=== PATIENT | female | born 1970 | race Hispanic/Latino ===

== ENCOUNTER 2020-09-14 17:31 | Emergency (ER) | payer OTHER ==
[~2020-09-14] VITALS: Ht 152.4 cm; Wt 67.1 kg
[~2020-09-14 17:31] MED LIST: EXEN10PE3 SQ; IBUP-2070 PO; METF-444 PO; SULF1TAB42 PO; TYL3 GT
[2020-09-14 17:33] VITALS: BP 130/75
[2020-09-14] MEDS ORDERED: ONDANSETRON 4MG INJ IVP ONE (18:00)
[2020-09-14] MEDS ORDERED: MORPHINE 4 MG SYG IV ONE (18:00)
[2020-09-14 18:13] LABS: APPEARANCE,URINE Clear (CLEAR); BILIRUBIN,URINE Negative (NEGATIVE); COLOR,URINE Yellow (YELLOW); GLUCOSE, URINE (UA) >=1000 mg/dL (NEGATIVE); KETONES,URINE Trace mg/dL (NEGATIVE); LEUKOCYTE ESTERASE ,URINE Negative (NEGATIVE); NITRATE,URINE Negative (NEGATIVE); OCCULT BLOOD,URINE Negative (NEGATIVE); PROTEIN,URINE Negative (NEGATIVE); UROBILINOGEN,URINE 0.2 mg/dL (0.2-1.0)
[2020-09-14 18:14] LABS: HCG,QUAL RESULT NEGATIVE (NEGATIVE)
[2020-09-14 18:18] LABS: BACTERIA,URINE Rare /HPF (None Seen); RBC,URINE 0-1 /HPF (0-1); SQUAMOUS EPITHELIAL CELL,UR Few /HPF (0-2); YEAST,URINE BUDDING Few /HPF (None Seen)
[2020-09-14 18:30] LABS: BASOPHILS % (AUTO) 0.6 % (0.0-5.0); HEMATOCRIT 44.9 % (36-48); MEAN CORPUSCULAR HEMOGLOBIN 29.1 pg (27.0-33.0); MEAN CORPUSCULAR HGB CONC 33.4 g/dL (32.0-36.0); MONOCYTES % (AUTO) 7.5 % (3.0-13.0); NEUTROPHILS % (AUTO) 52.8 % (40.0-77.0); PLATELET COUNT (AUTO) 333 K/uL (130-400); RED BLOOD CELL COUNT(AUTO) 5.16 MIL/uL (4.00-5.50); WHITE BLOOD COUNT (AUTO) 7.8 K/uL (4.8-10.8)
[2020-09-14 18:47] LABS: ALBUMIN 3.7 g/dL (3.5-5.0); BILIRUBIN,TOTAL 0.3 mg/dL (0.2-1.0); POTASSIUM 3.9 mmol/L (3.5-5.1); TOTAL PROTEIN, SERUM 7.9 g/dL (6.0-8.3)
[2020-09-14] MEDS ORDERED: INSULIN HUMULIN R 100 UNIT/ML 3ML SQ ONE (19:00)
[2020-09-14] MEDS ORDERED: 0.9%NACL 1000ML 1,000 ML IV ONE (19:00)
[2020-09-14] MEDS ORDERED: ZOSYN 3.375GM +NS 50ML IV ONE (19:30)
[2020-09-14] MEDS ORDERED: CEPH500B PO (19:43)
[2020-09-14] MEDS ORDERED: LACT10PA5 PO (19:43)
[2020-09-14] MEDS ORDERED: DICY20TA2 PO (19:43)
[2020-09-14 20:16] VITALS: BP 143/71
== END 2020-09-14 20:39 | disposition home or self-care (01) ==
LOC: EDH 17:31
DX: N39.0 Urinary tract infection, site not specified (principal); K59.00 Constipation, unspecified; R10.30 Lower abdominal pain, unspecified; R11.2 Nausea with vomiting, unspecified; I10 Essential (primary) hypertension; Z79.84 Long term (current) use of oral hypoglycemic drugs
CPT/HCPCS: 36415; 74176; 80053; 81001; 81025; 82150; 83690; 84484; 85025; 87088; 93005; 96365; 96372; 96375; 99285; J1815; J2270; J2405; J2543

== ENCOUNTER 2022-08-27 09:20 | Inpatient (IN) | payer OTHER ==
[~2022-08-27] VITALS: Ht 152.4 cm; Wt 70.5 kg
[~2022-08-27 09:20] MED LIST changes: +CEPH500B PO; +DICY20TA2 PO; +LACT10PA5 PO
[2022-08-27] MEDS ORDERED: HYDROCODONE/ACETAMINOPHEN 10/325 MG TAB PO ONE (10:00)
[2022-08-27 10:55] LABS: APPEARANCE,URINE CLEAR (CLEAR); BILIRUBIN,URINE NEGATIVE (NEGATIVE); COLOR,URINE COLORLESS (YELLOW); GLUCOSE, URINE (UA) >=1000 mg/dL (NEGATIVE); KETONES,URINE NEGATIVE (NEGATIVE); LEUKOCYTE ESTERASE ,URINE NEGATIVE Leu/uL (NEGATIVE); NITRATE,URINE NEGATIVE (NEGATIVE); PROTEIN,URINE 10 mg/dL (NEGATIVE); UROBILINOGEN,URINE 0.2 mg/dL (0.2-1.0)
[2022-08-27 10:57] LABS: SQUAMOUS EPITHELIAL CELL,UR RARE /HPF (0-2)
[2022-08-27 11:26] LABS: BASOPHILS % (AUTO) 0.7 % (0.0-5.0); EOSINOPHILS % (AUTO) 3.8 % (0.0-8.0); HEMATOCRIT 41.4 % (36-48); LYMPHOCYTES % (AUTO) 19.5 % (21.0-51.0); MEAN CORPUSCULAR HEMOGLOBIN 29.1 pg (27.0-33.0); MEAN CORPUSCULAR HGB CONC 33.8 g/dL (32.0-36.0); MEAN CORPUSCULAR VOLUME 86.1 fL (79-99); MONOCYTES % (AUTO) 6.1 % (3.0-13.0); NEUTROPHILS % (AUTO) 69.6 % (40.0-77.0); PLATELET COUNT (AUTO) 224 K/uL (130-400); RED BLOOD CELL COUNT(AUTO) 4.81 MIL/uL (4.00-5.50); WHITE BLOOD COUNT (AUTO) 9.5 K/uL (4.8-10.8)
[2022-08-27 11:42] LABS: ALBUMIN 3.4 g/dL (3.5-5.0); CREATININE 0.9 mg/dL (0.5-1.5); CRP QUANTITATIVE 7.5 mg/L (0.00-9.0); TOTAL PROTEIN, SERUM 7.3 g/dL (6.0-8.3)
[2022-08-27] MEDS ORDERED: INSULIN HUMULIN R 100 UNIT/ML 3ML IV ONE (12:30)
[2022-08-27] MEDS ORDERED: 0.9%NACL 1000ML 1,000 ML IV ONE (12:30)
[2022-08-27] MEDS ORDERED: MORPHINE 4 MG SYG IVP ONE (13:00)
[2022-08-27] MEDS ORDERED: KETOROLAC 15MG/ML VIAL (15MG/ML) IV ONE ×2 (13:00→23:00)
[2022-08-27] MEDS ORDERED: ONDANSETRON 4MG INJ IVP ONE (13:00)
[2022-08-27] MEDS ORDERED: ONDANSETRON 4MG INJ IVP PRN (14:30)
[2022-08-27] MEDS ORDERED: CEFTRIAXONE 1G VIAL IVPB ONE (14:30)
[2022-08-27] MEDS: INSULIN HUMULIN R 100 UNIT/ML 3ML SQ SCH ×2 (16:40→20:24)
[2022-08-27 16:50] VITALS: BP 161/90
[2022-08-27 20:00] VITALS: BP 132/67
[2022-08-27] MEDS: FAMOTIDINE 20MG TAB PO SCH (20:01)
[2022-08-27] MEDS: ACETAMINOPHEN 325 MG TAB PO PRN (20:02)
[2022-08-27 23:49] VITALS: BP 134/76
[2022-08-28 04:00] VITALS: BP 139/74
[2022-08-28 05:49] LABS: BASOPHILS % (AUTO) 0.7 % (0.0-5.0); EOSINOPHILS % (AUTO) 6.8 % (0.0-8.0); LYMPHOCYTES % (AUTO) 18.6 % (21.0-51.0); MEAN CORPUSCULAR HEMOGLOBIN 28.9 pg (27.0-33.0); MEAN CORPUSCULAR VOLUME 87.5 fL (79-99); MONOCYTES % (AUTO) 6.7 % (3.0-13.0); NEUTROPHILS % (AUTO) 66.8 % (40.0-77.0); PLATELET COUNT (AUTO) 227 K/uL (130-400); RED BLOOD CELL COUNT(AUTO) 4.57 MIL/uL (4.00-5.50); RED CELL DISTRIBUTION WIDTH 11.9 % (11.0-15.5); WHITE BLOOD COUNT (AUTO) 8.4 K/uL (4.8-10.8)
[2022-08-28 06:07] LABS: ALBUMIN 2.8 g/dL (3.5-5.0); CREATININE 0.9 mg/dL (0.5-1.5); TOTAL PROTEIN, SERUM 6.6 g/dL (6.0-8.3)
[2022-08-28] MEDS: INSULIN HUMULIN R 100 UNIT/ML 3ML SQ SCH ×4 (06:18→21:29)
[2022-08-28 08:00] VITALS: BP 144/80
[2022-08-28] MEDS: FAMOTIDINE 20MG TAB PO SCH ×2 (08:55→21:24)
[2022-08-28] MEDS: ENOXAPARIN SODIUM 40 MG/0.4 ML SYRINGE SQ SCH (08:56)
[2022-08-28 12:00] VITALS: BP 122/89
[2022-08-28] MEDS ORDERED: INSULIN GLARGINE 100 UNITS/ML 10 ML VIAL SQ ONE (15:30)
[2022-08-28 16:00] VITALS: BP 162/84
[2022-08-28] MEDS ORDERED: HONEY 1 APPL/ML TUBE TP SCH (16:30)
[2022-08-28] MEDS ORDERED: INSULIN HUMULIN R 100 UNIT/ML 3ML SQ SCH (17:00)
[2022-08-28 19:39] VITALS: BP 158/84
[2022-08-28 23:37] VITALS: BP 126/76
[2022-08-29 03:37] VITALS: BP 129/72
[2022-08-29] MEDS: ACETAMINOPHEN 325 MG TAB PO PRN (03:54)
[2022-08-29 04:30] LABS: BASOPHILS % (AUTO) 0.7 % (0.0-5.0); EOSINOPHILS % (AUTO) 6.7 % (0.0-8.0); HEMATOCRIT 38.3 % (36-48); LYMPHOCYTES % (AUTO) 35.8 % (21.0-51.0); MEAN CORPUSCULAR HEMOGLOBIN 28.8 pg (27.0-33.0); MEAN CORPUSCULAR HGB CONC 33.4 g/dL (32.0-36.0); MEAN CORPUSCULAR VOLUME 86.3 fL (79-99); MONOCYTES % (AUTO) 9.9 % (3.0-13.0); NEUTROPHILS % (AUTO) 46.5 % (40.0-77.0); PLATELET COUNT (AUTO) 249 K/uL (130-400); RED BLOOD CELL COUNT(AUTO) 4.44 MIL/uL (4.00-5.50); WHITE BLOOD COUNT (AUTO) 6.7 K/uL (4.8-10.8)
[2022-08-29 04:47] LABS: ALBUMIN 2.7 g/dL (3.5-5.0); CREATININE 0.7 mg/dL (0.5-1.5); POTASSIUM 3.9 mmol/L (3.5-5.1); TOTAL PROTEIN, SERUM 6.4 g/dL (6.0-8.3)
[2022-08-29] MEDS: INSULIN HUMULIN R 100 UNIT/ML 3ML SQ SCH (06:00)
[2022-08-29] MEDS ORDERED: INSULIN HUMULIN R 100 UNIT/ML 3ML SQ SCH (07:30)
[2022-08-29] MEDS ORDERED: INSU10VI3 SQ (07:46)
[2022-08-29] MEDS ORDERED: GABA-529 PO (07:46)
[2022-08-29 08:00] VITALS: BP 133/71
[2022-08-29] MEDS ORDERED: INSULIN GLARGINE 100 UNITS/ML 10 ML VIAL SQ SCH (09:00)
[2022-08-29] MEDS: FAMOTIDINE 20MG TAB PO SCH (09:48)
[2022-08-29] MEDS: ENOXAPARIN SODIUM 40 MG/0.4 ML SYRINGE SQ SCH (09:48)
== END 2022-08-29 10:45 | disposition home or self-care (01) | DRG 637 ==
LOC: EDH 09:20 → EDHIP 14:26 → 3CH 17:11
PROVIDERS: ADMIT Hospitalist; ATTEND Hospitalist
DX: E11.00 Type 2 diabetes mellitus with hyperosmolarity without nonketotic hyperglycemic-hyperosmolar coma (NKHHC) (principal); E43 Unspecified severe protein-calorie malnutrition; E11.40 Type 2 diabetes mellitus with diabetic neuropathy, unspecified; H54.8 Legal blindness, as defined in USA; R32 Unspecified urinary incontinence; L97.519 Non-pressure chronic ulcer of other part of right foot with unspecified severity; E11.621 Type 2 diabetes mellitus with foot ulcer; G89.29 Other chronic pain; I10 Essential (primary) hypertension; M48.061 Spinal stenosis, lumbar region without neurogenic claudication; Z90.710 Acquired absence of both cervix and uterus; Z79.4 Long term (current) use of insulin; Z68.30 Body mass index [BMI] 30.0-30.9, adult
CPT/HCPCS: 36415; 72131; 73630; 80053; 81001; 82948; 83036; 83605; 83690; 85025; 86140; G0378; J0696; J1650; J1815; J1885; J2270; J2405; J7030

== ENCOUNTER 2024-06-10 11:20 | Emergency (ER) | payer BC, MEDICAID ==
[~2024-06-10] VITALS: Ht 152.4 cm; Wt 63.5 kg
[~2024-06-10 11:20] MED LIST changes: -CEPH500B PO; -DICY20TA2 PO; +DOXY100T2 PO; -EXEN10PE3 SQ; -IBUP-2070 PO; -LACT10PA5 PO; -METF-444 PO; -SULF1TAB42 PO; -TYL3 GT
[2024-06-10 12:38] LABS: BASOPHILS # (AUTO) 0.05 K/uL (0.00-0.20); BASOPHILS % (AUTO) 0.6 % (0.0-5.0); EOSINOPHILS # (AUTO) 0.39 K/uL (0.00-0.70); HEMATOCRIT 37.7 % (36-48); IMMATURE GRANULOCYTE ABSOLUTE 0.03 K/uL (0-1); LYMPHOCYTES # (AUTO) 1.7 K/uL (1.0-4.8); LYMPHOCYTES % (AUTO) 21.7 % (21.0-51.0); MEAN CORPUSCULAR HEMOGLOBIN 28.6 pg (27.0-33.0); MEAN CORPUSCULAR HGB CONC 32.9 g/dL (32.0-36.0); MEAN CORPUSCULAR VOLUME 87.1 fL (79-99); MONOCYTES # (AUTO) 0.6 K/uL (0.1-1.0); MONOCYTES % (AUTO) 7.9 % (3.0-13.0); NEUTROPHILS % (AUTO) 64.4 % (40.0-77.0); PLATELET COUNT (AUTO) 360 K/uL (130-400); RED BLOOD CELL COUNT(AUTO) 4.33 MIL/uL (4.00-5.50); RED CELL DISTRIBUTION WIDTH 12.1 % (11.0-15.5); WHITE BLOOD COUNT (AUTO) 7.8 K/uL (4.8-10.8)
[2024-06-10 12:51] LABS: CREATININE 1.1 mg/dL (0.5-1.0); POTASSIUM 4.2 mmol/L (3.5-5.1)
--- NOTE | 2024-06-10 12:53 | HMCIMG ---
ULTRASOUND VENOUS DOPPLER LEFT LOWER EXTREMITY INDICATION: Pain and swelling. TECHNIQUE: Routine grayscale and color Doppler ultrasound of the left lower extremity veins performed. COMPARISON: None. FINDINGS: The demonstrated veins of the left lower extremity including the common femoral vein, femoral vein, and popliteal vein are associated with normal compressibility, augmentation, and flow. Normal respiratory variation was identified. No evidence for echogenic intraluminal thrombus. IMPRESSION: No evidence for deep venous thrombosis.
--- NOTE | 2024-06-10 13:14 | NUR ---
DAUGHTER, ANDREI BALDWIN [phone].
--- NOTE | 2024-06-10 13:47 | HMCIMG ---
LEFT FEMUR RADIOGRAPHS - 2 VIEWS INDICATION: Pain COMPARISON: None FINDINGS: AP and lateral views. No fracture or dislocation identified. Extensive calcific plaque along the inflow, outflow, and runoff arterial manzano.. IMPRESSION: No evidence for fracture or dislocation.
--- NOTE | 2024-06-10 13:48 | HMCIMG ---
LEFT TIBIA AND FIBULA RADIOGRAPHS - 2 VIEWS INDICATION: Pain COMPARISON: None. FINDINGS: AP and lateral views. No evidence for acute fracture or dislocation. Extensive calcific plaque along the outflow and runoff arterial manzano. Subcentimeter plantar calcaneal spur. IMPRESSION: No evidence for fracture or dislocation.
[2024-06-10] MEDS: ketOROlac 30MG VIAL (30MG/ML) IM ONE (14:14)
[2024-06-10] MEDS: TRIAMCINOLONE ACETONIDE 40 MG/ML 1ML VIAL IM ONE (14:14)
[2024-06-10] MEDS: acetaMINOPHEN 500 MG TABLET PO ONE (14:14)
--- NOTE | 2024-06-10 14:30 | ERN ---
ED Note History of Present Illness Stated Complaint: LEFT LEG PAIN,GANGRENE Chief Complaint: Lower Extremity Pain/Injury Time Seen by MD: 11:26 Time Seen by Midlevel: 11:26 Dictation: The Patient is a 53-year-old female with a history of diabetes, right BKA who presents to the emergency department with complaints of left leg pain onset Thursday. Patient reports no trauma. Reports that she has been dealing with some wounds to her left lower leg for months. Denies any fevers. Allergies: Coded Allergies: No Known Drug Allergies (Unverified Allergy, Unknown, 01/24/14) Home Meds Active Scripts Doxycycline Hyclate (Doxycycline Hyclate) 100 Mg Tablet, 100 MG PO BID, #10 TAB 0 Refills Prov:LEVI GUY Irwin DELVALLE 07/16/23 Past Medical History Past Medical History: Diabetes-Type II, High Cholesterol, Hypertension, Other Additional Past Medical Hx: LEGALLY BLIND Surgical History: Appendectomy, Hysterectomy, Other, Surgical History Other: RT BKA Social History: Negative, Lives with family RN Note Reviewed/Agreed w/PFSH: Yes Review of System Dictation Constitutional: Negative for fever,chills, and weight loss Eyes: Negative for injury, pain,redness, and discharge ENT: Negative for injury,pain or swelling Cardiovascular: Negative for chest pain, palpitations, and edema Respiratory: Negative for shortness of breath, cough, and wheezing, Abdomen/GI: Negative for abdominal pain, nausea, vomiting, diarrhea, and con stipation Back: Negative for injury and pain : Negative for injury, bleeding and discharge MS/Extremity: Negative for injury and deformity left leg pain Skin: Negative for rash, and discoloration Neuro: Negative for headache, weakness, numbness, tingling, and seizure Psych: Negative for suicide ideation, homicidal ideation, and hallucinations Initial Vital Sign VS Vital Signs Date Time Temp Pulse Resp B/P (MAP) Pulse Ox O2 Delivery O2 Flow Rate FiO2 06/10/24 11:50 98.2 98 20 139/80 98 Room Air 0 06/10/24 14:00 21 Physical Exam Dictation Vital Signs reviewed General Appearance: Alert, oriented x 3, no acute distress, well developed, nourished. Head and Face: non-traumatic. Eyes: PERRL, pink conjunctivas, eyelid no trauma, anterior chamber with arcus senilis. Ears: Pinnas intact and no signs of trauma or erythema ear canals clear and no discharge TM no erythema Nose: No discharge, no bleeding. Oropharynx: Mouth normal, tongue pink. pharynx clear,no erythema, tonsils no exudates, no abscesses noted, mucous membrane moist Neck: Supple, non-tender, no thyromegaly, no masses, no JVD, no bruits Breast:Deferred Chest:No tenderness, no crepitus, no paradoxical movement, no retractions Lungs:Clear, well-ventilated, symmetric, no rales, no wheezing, no rhonchi, no stridor, good breath sounds bilaterally Heart: Regular rate, regular rhythm, no murmur, no gallops Vascular: no peripheral edema, Abdomen: Soft, positive bowel sounds, nondistended, no guarding, nontender, no rebound, no masses no hepatomegaly, no splenomegaly, no Delacruz's sign, no hernias. Rectal: Deferred Genital: Deferred Neurological: Normal speech, motor function intact, sensory function intact Musculoskeletal: Neck nontender, full range of motion, back nontender, full range of motion, Extremities: nontender, full range of motion Skin: Color pink, dry, no turgor, no rash, no lacerations, no abrasions, no contusions. Wound left lower leg by 1.5 cm in diameter, scab noted Lymphatic: Deferred Results (Laboratory/Radiology) Laboratory/Radiology Laboratory Tests Test 06/10/24 12:22 White Blood Count 7.8 K/uL (4.8-10.8) Red Blood Count 4.33 MIL/uL (4.00-5.50) Hemoglobin 12.4 g/dL (12.0-16.0) Hematocrit 37.7 % (36-48) Mean Corpuscular Volume 87.1 fL (79-99) Mean Corpuscular Hemoglobin 28.6 pg (27.0-33.0) Mean Corpuscular Hemoglobin Concent 32.9 g/dL (32.0-36.0) Red Cell Distribution Width 12.1 % (11.0-15.5) Platelet Count 360 K/uL (130-400) Mean Platelet Volume 11.4 fL (7.5-10.5) H Immature Granulocyte % (Auto) 0.4 % (0-1) Neutrophils (%) (Auto) 64.4 % (40.0-77.0) Lymphocytes (%) (Auto) 21.7 % (21.0-51.0) Monocytes (%) (Auto) 7.9 % (3.0-13.0) Eosinophils (%) (Auto) 5.0 % (0.0-8.0) Basophils (%) (Auto) 0.6 % (0.0-5.0) Neutrophils # (Auto) 5.0 K/uL (1.8-7.7) Lymphocytes # (Auto) 1.7 K/uL (1.0-4.8) Monocytes # (Auto) 0.6 K/uL (0.1-1.0) Eosinophils # (Auto) 0.39 K/uL (0.00-0.70) Basophils # (Auto) 0.05 K/uL (0.00-0.20) Absolute Immature Granulocyte (auto 0.03 K/uL (0-1) Nucleated Red Blood Cells 0.0 % (0.0-0.19) Sodium Level 141 mmol/L (136-145) Potassium Level 4.2 mmol/L (3.5-5.1) Chloride Level 105 mmol/L (101-111) Carbon Dioxide Level 30 mmol/L (21-32) Blood Urea Nitrogen 25 mg/dL (7-18) H Creatinine 1.1 mg/dL (0.5-1.0) H Glomerular Filtration Rate Calc 60 mL/min (>90) Random Glucose 167 mg/dL (70-105) H Total Calcium 9.1 mg/dL (8.5-10.1) Total Creatine Kinase 114 U/L (21-232) # REASON: pain ORDERING PHYSICIAN: HARRY WELLS SHIPS OR BARGES LOADER PROCEDURE: TIBFIB LT - TIBIA/FIBULA 2VWS LT LEFT TIBIA AND FIBULA RADIOGRAPHS - 2 VIEWS INDICATION: Pain COMPARISON: None. FINDINGS: AP and lateral views. No evidence for acute fracture or dislocation. Extensive calcific plaque along the outflow and runoff arterial manzano. Subcentimeter plantar calcaneal spur. IMPRESSION: No evidence for fracture or dislocation. REASON: pain ORDERING PHYSICIAN: HARRY WELLS SHIPS OR BARGES LOADER PROCEDURE: FEM LT 2 - FEMUR 2 VW LEFT LEFT FEMUR RADIOGRAPHS - 2 VIEWS INDICATION: Pain COMPARISON: None FINDINGS: AP and lateral views. No fracture or dislocation identified. Extensive calcific plaque along the inflow, outflow, and runoff arterial manzano.. IMPRESSION: No evidence for fracture or dislocation. REASON: pain, left lower leg ORDERING PHYSICIAN: HARRY WELLS PROCEDURE: VENOUS UNI - US VENOUS DOPPLER UNILATERAL ULTRASOUND VENOUS DOPPLER LEFT LOWER EXTREMITY INDICATION: Pain and swelling. TECHNIQUE: Routine grayscale and color Doppler ultrasound of the left lower extremity veins performed. COMPARISON: None. FINDINGS: The demonstrated veins of the left lower extremity including the common femoral vein, femoral vein, and popliteal vein are associated with normal compressibility, augmentation, and flow. Normal respiratory variation was identified. No evidence for echogenic intraluminal thrombus. IMPRESSION: No evidence for deep venous thrombosis. Labs Reviewed?: Yes ED Course ED Course Orders Procedure Category Date Status Time Cbc With Differential LAB 06/10/24 Complete 12:10 Basic Metabolic Panel LAB 06/10/24 Complete 12:10 Creatine Kinase, Total LAB 06/10/24 Complete 12:10 Us Venous Doppler US 06/10/24 Resulted Unilateral 12:10 Acetaminophen 500mg PHA 06/10/24 Complete Tab (Tylenol 500mg T 12:30 Tibia/Fibula 2vws Lt RAD 06/10/24 Resulted 12:12 Femur 2 Vw Left RAD 06/10/24 Resulted 12:12 Triamcinolone Acet PHA 06/10/24 In Process 40mg/Ml 1ml (Kenalog 14:30 Ketorolac PHA 06/10/24 In Process Tromethamine 30mg/Ml 14:30 Current Medications Medications (Trade) Dose Ordered Sig/Valeriy Route PRN Reason Start Time Stop Time Status Last Admin Dose Admin Acetaminophen (TYLenol 500MG TAB) 1,000 mg ONCE ONCE PO 06/10/24 12:30 06/10/24 12:31 DC 06/10/24 14:14 Ketorolac Tromethamine (toRADol) 30 mg ONCE ONCE IM 06/10/24 14:30 06/10/24 14:31 06/10/24 14:14 Triamcinolone Acetonide (Kenalog 40) 40 mg ONCE ONCE IM 06/10/24 14:30 06/10/24 14:31 06/10/24 14:14 Vital Signs Date Time Temp Pulse Resp B/P (MAP) Pulse Ox O2 Delivery O2 Flow Rate FiO2 06/10/24 14:00 78 18 146/76 98 Room Air* 0 21 06/10/24 11:50 98.2 98 20 139/80 98 Room Air 0 Medical Decision Making MDM The Patient is a 53-year-old female with a history of diabetes, right BKA who presents to the emergency department with complaints of left leg pain onset Thursday. Patient reports no trauma. Reports that she has been dealing with some wounds to her left lower leg for months. Denies any fevers. CBC showed no leukocytosis, no anemia, chemistry showed no electrolyte imbal ance, normal CK level. Ultrasound revealed no evidence of DVT. X-ray showed no acute fractures. Patient with full movements with good. Wound does not appear to be infected, scabbing noted around the wound, no drainage. Appears to be healing well. No erythema or discoloration to lower extremities. Neurovascularly intact Patient in no acute distress, stable vital signs we will be discharged to follow up with. Differential diagnosis: DVT, rhabdomyolysis, sepsis, rashes Need for hospitalization: Patient does not meet criteria for hospitalization. There are no social concerns with this patient. DX & DISP Disposition: Discharge Departure Impression: Primary Impression: Left leg pain Condition: Stable Additional Instructions: Please follow up with the primary doctor in 1-2 days. Please return to ER if symptoms worsen. There was no obvious fractures on the x-ray. There was also no evidence of deep vein thrombosis. FOLLOW-UP WITH PRIMARY CARE PROVIDER IN 1 TO 2 DAYS. TAKE MEDICATIONS DIRECT ED HERE IN THE EMERGENCY ROOM. OKAY TO CONTINUE HOME MEDICATIONS UNLESS OTHERWISE DISCUSSED DURING YOUR VISIT IN THE EMERGENCY ROOM TODAY. RETURN TO YOUR NEAREST EMERGENCY ROOM IF SYMPTOMS WORSEN OR IF THERE IS NO IMPROVEMENT. CALL 911 IF YOU NEED IMMEDIATE ASSISTANCE. TAKE TYLENOL OR MOTRIN [id number] NEEDED AND IF NO CONTRAINDICATIONS ARE PRESENT. INCREASE ORAL HYDRATION. A WOUND CULTURE OR URINE CULTURE WAS ORDERED HERE IN THE EMERGENCY ROOM DEPARTMENT PLEASE FOLLOW-UP WITH PRIMARY CARE PROVIDER AND ADVISE THEM TO GET REPEAT PORTS FROM OUR FACILITY. IF YOU HAD ANY KASHMIR WRAP/SPLINTS THAT WERE APPLIED HERE, PLEASE DO NOT REMOVE THEM UNTIL YOU SEE YOUR PRIMARY CARE OR SPECIALTY. Referrals: SHARIF LERNER MD (PCP) Time of Disposition: 14:30 I have reviewed the case, and I agree with, Diagnosis and Plan HARRY WELLSP Jun 10, 2024 14:30
[2024-06-10 14:53] VITALS: BP 152/79; PULSE 78; RESP 18; TEMP 98.2; O2SAT 98
== END 2024-06-10 14:54 | disposition home or self-care (01) ==
LOC: EDH 11:20
DX: M79.605 Pain in left leg (principal); E11.9 Type 2 diabetes mellitus without complications; E78.00 Pure hypercholesterolemia, unspecified; I10 Essential (primary) hypertension; Z79.899 Other long term (current) drug therapy; Z89.511 Acquired absence of right leg below knee; Z90.49 Acquired absence of other specified parts of digestive tract; Z90.710 Acquired absence of both cervix and uterus
CPT/HCPCS: 99284; 93971; 82550; 80048; 85025; 36415; 73552; 73590; 96372 ×2; J1885; J3301; 99285

== ENCOUNTER → 2025-01-11 | Outpatient (CLI) | payer OTHER, MEDICARE ==
--- NOTE | 2025-01-11 15:55 | HMCIMG ---
DIGITAL BILATERAL SCREENING MAMMOGRAM Technique: The digital mammographic examination of both breasts in craniocaudal and mediolateral oblique views along with CAD was obtained. History: This is a 54 years year-old female 3, para3 Ab0. Patient has no family history of breast cancer. Patient has no complaint Reference:Prior mammogram from 12/01/2013 are available.. Breast composition: Breast composition D: The breasts are extremely dense, which lowers the sensitivity of mammography. Finding: The digital mammographic examination of both breasts in craniocaudal and mediolateral oblique view along with CAD demonstrates both breasts to BE dense. There are benign vascular calcification suggesting of atherosclerotic changes. The left breast upper inner quadrant demonstrate dystrophic macrocalcification. There is no evidence of any dendritic mass, cluster microcalcification or architectural distortion. The retromammary fat appears to be normal. IMPRESSION: NO RADIOGRAPHIC EVIDENCE OF MALIGNANT CHANGES. WE WOULD RECOMMEND ANNUAL FOLLOW UP WITH TOMOSYNTHESIS UNLESS OTHERWISE CLINICALLY INDICATED. I would recommend annual bilateral breast sonogram. FINAL ASSESSMENT: ACR: BI-RAD- 2. Benign Finding. NOTE: IF A WORK-UP OF THIS PATIENT LEADS TO A BIOPSY, PLEASE FORWARD A COPY OF THE PATHOLOGY REPORT TO OUR OFFICE REQUIRED BY [employer] NOVEMBER 23, 1993. A NEGATIVE MAMMOGRAM SHOULD NOT PRECLUDE BIOPSY OF A CLINICALLY PALPABLE SUSPICIOUS MASS, 10% OF BREAST CANCERS ARE MAMMOGRAPHICALLY OCCULT. THIS MAMMOGRAPHY FACILITY IS FULLY ACCREDITED BY THE FOOD AND DRUG [employer]ATION (FDA). THANK YOU FOR THIS REFERRAL.
== END | disposition home or self-care (01) ==
LOC: RAH 10:36
PROVIDERS: ATTEND Internal Medicine
DX: Z12.31 Encounter for screening mammogram for malignant neoplasm of breast (principal); R92.343 Mammographic extreme density, bilateral breasts; R92.1 Mammographic calcification found on diagnostic imaging of breast
CPT/HCPCS: 77067

== ENCOUNTER 2025-01-27 09:40 | Emergency (ER) | payer OTHER, MEDICARE ==
[~2025-01-27] VITALS: Ht 152.4 cm; Wt 64.4 kg
[2025-01-27 09:44] VITALS: BP 183/89; PULSE 91; RESP 20; TEMP 97.8
--- NOTE | 2025-01-27 09:56 | NUR ---
PT JUST NOW PLACED IN ED BED 11
--- NOTE | 2025-01-27 10:30 | ERN ---
General Chief Complaint: Earache Stated Complaint: LT EAR PAIN Time Seen by MD: 09:45 Source: patient History of Present Illness Initial Comments Ms Felipe, 54F with history of uncontrolled diabetes, hyperlipidemia, BKA of right lower limb, legally blind came to the ED with a chief complaint of severe left ear pain associated with swelling of the left face since 1 week. She fol kezia Daly for the ear pain and she is on amoxicillin and Ciprodex drops. She reports ear pain started 1 week back that has been progressive, not relieved by antibiotics, associated with inability to open the mouth and swelling of the left face. Timing/Duration: 1 week Severity: moderate Associated Symptoms: other (Swelling on the left side of face) Allergies: Coded Allergies: No Known Drug Allergies (Unverified Allergy, Unknown, 01/24/14) Home Meds Active Scripts Doxycycline Hyclate (Doxycycline Hyclate) 100 Mg Tablet, 100 MG PO BID, #10 TAB 0 Refills Prov:LEVI GUY 07/16/23 Past Medical History Past Medical History: Diabetes-Type II, High Cholesterol, Hypertension, Other Medical History Other: LEGALLY BLIND Past Surgical History: Appendectomy, Hysterectomy, Other, Surgical History Other: RT BKA Social History Social History: Negative, Lives with family Constitutional: (+) chills EENTM: (+) ear pain Respiratory: (-) cough, (-) orthopnea, (-) short of breath, (-) stridor, (-) wheezing, (-) other documentation Gastrointestinal/Abdominal: (-) nausea, (-) vomiting, (-) diarrhea, (-) abdominal pain, (-) abdominal distention, (-) constipation, (-) rectal bleeding, (-) dark stool/melena, (-) other documentation Genitourinary: (-) vaginal discharge, (-) vaginal bleeding, (-) dysuria, (-) frequency, (-) hematuria, (-) pain, (-) other documentation Musculoskeletal: (-) Neck pain, (-) back pain, (-) Flank Pain, (-) joint pain, (-) joint swelling, (-) muscle pain, (-) muscle stiffness, (-) gout, (-) other documentation Skin: (-) laceration, (-) contusion, (-) abrasion, (-) abscess, (-) rash, (-) change in color, (-) change in hair, (-) change in nails, (-) diaphoresis, (-) dryness, (-) other documentation Neuro: (-) altered mental status, (-) headache, (-) syncope, (-) paralysis, (-) numbness, (-) seizure, (-) pre-existing deficit, (-) tremors, (-) weakness, (-) dizziness, (-) slurred speech, (-) vertigo, (-) other documentation Psych: (+) anxiety Review of Systems: was completed, & the rest were negative. Physical Exam General Appearance: (+) moderate distress Orientation: (+) alert, (+) oriented x 3 Head/Face Trauma: No Eye: bilateral eye other (Legally blind) Eyes Comment Legally Blind Ear, Nose, Throat: (+) abnormal TM, (+) hearing decreased Neck: (+) normal inspection Respiratory: (+) chest non-tender, (+) lungs clear Heart: (+) regular, (+) no gallop Vascular: (+) no edema Gastrointestinal: (+) soft, (+) non-tender Breast Exam: (+) deferred Genital: (+) deferred Rectal: (+) deferred Extremities Comment BKA of right lower leg Neurologic/Psychiatric: (+) normal speech Skin: (+) normal color Results Laboratory and Microbiology Labs Reviewed?: Yes MDM Differential diagnosis: Otitis externa/acute parotitis Patient is a 54F, with history of uncontrolled diabetes, BKA of right lower leg, legally blind, hyperlipidemia came to the ED with a chief complaint of severe left ear pain associated with swelling of the lower left side of face, inability to open the mouth, mild hearing loss. Patient is already on amoxicillin and Ciprodex drops In the ED, her vitals are stable except her blood pressure is in 180s which might be due to her severe pain We gave her 2% lidocaine ear drops for her severe pain We will refer her to ENT outpatient Patient is stable and can be discharged and managed outpatient under the care of PCP and ENT ED Course Orders Procedure Category Date Status Time Lidocaine Hcl 1% 20ml PHA 01/27/25 Complete Vial (Lidocaine Hc 10:37 Current Medications Medications (Trade) Dose Ordered Sig/Valeriy Route PRN Reason Start Time Stop Time Status Last Admin Dose Admin Lidocaine HCl (Lidocaine HCl 1% 20ml Vial) 20 ml ONCE STAT INJ 01/27/25 10:37 01/27/25 10:43 DC Vital Signs Date Time Temp Pulse Resp B/P (MAP) Pulse Ox O2 Delivery O2 Flow Rate FiO2 01/27/25 09:44 97.9 91 20 183/89 98 Room Air DX & DISP Disposition: Discharge Departure Impression: Primary Impression: Acute otitis externa of left ear Critical Time: 30 minutes Condition: Stable Additional Instructions: Continue to take amoxicillin and Ciprodex ear drops as instructed. Manage pain with ibuprofen or acetaminophen OTC as needed Keep the ear completely dry for 7-10 day and avoid swimming, for managing the ear, or getting water in while showering Do not insert anything into the ear, no Q-tips,ear buds, or scratching Full recovery usually takes 5-7 days. Come to the ER/clinic you develop worsening pain after 48-72 hours, fever/pudding redness or swelling around the year, drainage with foul odor, increased hearing loss, severe headache/dizzines s/facial weakness Follow up with PCP or ENT in 1 week or sooner if symptoms are not improving Referrals: SHARIF DALY MD (PCP) MARIAMA DURHAM MD Time of Disposition: 10:49 WILLIE DALTON MD Jan 27, 2025 10:30 LUCIA CAMEJO MD Jan 27, 2025 10:50
[2025-01-27] MEDS: LIDOCAINE HCL 1% 20 ML VIAL INJ STA (10:50)
--- NOTE | 2025-01-27 10:51 | NUR ---
LIDO DROPS PLACED BY DR CAMEJO 2 DROPS TO L EAR
== END 2025-01-27 11:54 | disposition home or self-care (01) ==
LOC: EDH 09:40
DX: H60.502 Unspecified acute noninfective otitis externa, left ear (principal); E11.9 Type 2 diabetes mellitus without complications; E78.00 Pure hypercholesterolemia, unspecified; I10 Essential (primary) hypertension; Z89.511 Acquired absence of right leg below knee; Z90.49 Acquired absence of other specified parts of digestive tract; Z90.710 Acquired absence of both cervix and uterus
CPT/HCPCS: 99282; J2003